=== PATIENT | female | born 1985 | race African-American/Black ===

== ENCOUNTER 2017-05-15 07:45 | Emergency (ER) | payer SELFPAY ==
--- NOTE | 2017-05-15 08:47 | ER Document Report ---
ED Skin Rash/Insect Bite/Abscs - General Chief Complaint: Abscess Stated Complaint: ABSCESS Time Seen by Provider: 05/15/17 08:26 Mode of Arrival: Ambulatory Information source: Patient Notes: 1-year-old female presents to ED for complaint of abscess in her right axilla states it has been present for a while but got larger and more painful over the last couple days. Denies any past medical history of abscesses. Has a history of a occasional not very often tachycardia, 2 ectopic pregnancies 2 C-sections. Last menstrual period 1617. She occasionally drinks and smokes 4 cigarettes a day. TRAVEL OUTSIDE OF THE [place] IN LAST 30 DAYS: No - HPI Patient complains to provider of: Tender/swollen area Onset: Other - States the numbness from time course of the last several days Onset/Duration: Gradual Quality of pain: Pressure, Sharp Severity: Moderate Pain Level: 3 Skin Character: Abscess - Right axilla Quality of rash: Painful Identify cause: No Exacerbated by: Movement Relieved by: Denies Similar symptoms previously: No Recently seen / treated by doctor: No - Related Data Allergies/Adverse Reactions: amoxicillin [Amoxicillin] Allergy (Verified 05/15/17 07:48) codeine [Codeine] Allergy (Verified 05/15/17 07:48) hydrocodone bitartrate [From Vicodin] Allergy (Verified 05/15/17 07:48) morphine [Morphine] Allergy (Verified 05/15/17 07:48) oxycodone HCl [From Percocet] Allergy (Verified 05/15/17 07:48) Past Medical History - General Information source: Patient - Social History Smoking Status: Current Every Day Smoker Cigarette use (# per day): Yes - 4 cig a day Chew tobacco use (# tins/day): No Smoking Education Provided: Yes - less than 1 min Frequency of alcohol use: Occasional Drug Abuse: None Lives with: Family Family History: None. denies: Arthritis, CAD, COPD, CVA, DM, Hyperlipidemia, Hypertension, Malignancy, Thyroid Disfunction Patient has suicidal ideation: No Patient has homicidal ideation: No - Past Medical History Cardiac Medical History: Reports: Other - tachycardia Pulmonary Medical History: Reports: None EENT Medical History: Reports: None Neurological Medical History: Reports: Hx Migraine Endocrine Medical History: Reports: None Renal/ Medical History: Reports: Hx Ectopic Malignancy Medical History: Reports: None GI Medical History: Reports: None Musculoskeltal Medical History: Reports None Skin Medical History: Reports None Psychiatric Medical History: Reports: None Traumatic Medical History: Reports: None Infectious Medical History: Reports: None Past Surgical History: Reports: Hx Section - x2, Hx Gynecologic Surgery - removed L tube/ovary ectopic x2 - Immunizations Hx Diphtheria, Pertussis, Tetanus Vaccination: Yes Review of Systems - Review of Systems Constitutional: No symptoms reported EENT: No symptoms reported Cardiovascular: No symptoms reported Respiratory: No symptoms reported Gastrointestinal: No symptoms reported Genitourinary: No symptoms reported Female Genitourinary: No symptoms reported Musculoskeletal: No symptoms reported Skin: No symptoms reported, Other - Tender swelling painful area to the right axilla Hematologic/Lymphatic: No symptoms reported Neurological/Psychological: No symptoms reported -: Yes All other systems reviewed and negative Physical Exam - Vital signs Vitals: Temp Pulse Resp BP Pulse Ox 98.5 F 99 20 121/81 97 05/15/17 07:48 05/15/17 07:48 05/15/17 07:48 05/15/17 07:48 05/15/17 07:48 Interpretation: Normal - General General appearance: Appears well, Alert - HEENT Head: Normocephalic, Atraumatic Eyes: Normal Pupils: PERRL - Respiratory Respiratory status: No respiratory distress Chest status: Nontender Breath sounds: Normal Chest palpation: Normal - Cardiovascular Rhythm: Regular Heart sounds: Normal auscultation Murmur: No - Abdominal Inspection: Normal Distension: No distension Bowel sounds: Normal Tenderness: Nontender Organomegaly: No organomegaly - Back Back: Normal, Nontender - Extremities General upper extremity: Normal inspection, Nontender, Normal color, Normal ROM , Normal temperature General lower extremity: Normal inspection, Nontender, Normal color, Normal ROM , Normal temperature, Normal weight bearing. No: Vidal's sign - Neurological Neuro grossly intact: Yes Cognition: Normal Orientation: AAOx4 Hi Coma Scale Eye Opening: Spontaneous [place] Coma Scale Verbal: Oriented Hi Coma Scale Motor: Obeys Commands Hi Coma Scale Total: 15 Speech: Normal Motor strength normal: LUE, RUE, LLE, RLE Sensory: Normal - Psychological Associated symptoms: Normal affect, Normal mood - Skin Skin Temperature: Warm Skin Moisture: Dry Skin Color: Normal Skin irregularity: Abscess - right axilla Irregularity with: Swelling, Tenderness, Warmth Course - Re-evaluation Re-evalutation: 05/15/17 09:18 After I&D completed, patient was treated with Septra and Keflex and ibuprofen. - Vital Signs Vital signs: Temp Pulse Resp BP Pulse Ox 98.5 F 99 20 121/81 97 05/15/17 07:48 05/15/17 07:48 05/15/17 07:48 05/15/17 07:48 05/15/17 07:48 Procedures - Incision and Drainage Right Axilla Time completed: 09:12 Type: Simple Anesthetic type: 1% Lidocaine mL's of anesthetic: 4 Blade size: 11 I&D procedure: Sterile dressing applied, Other Incision Method: Incision made by scalpel Amount/type of drainage: moderate amount purulent drainage Discharge - Discharge Clinical Impression: Abscess of right axilla Condition: Stable Disposition: HOME, SELF-CARE Instructions: Family Physicians / Practices Additional Instructions: ABSCESS: You have an abscess (boil). This a pus-forming infection, usually due to staph. Some boils may be left to drain on their own, but most require lancing. From the time the tender lump first appears, it may be three or four days before the abscess is ready to vashti. Local heat and rest help at this stage of treatment. An antibiotic may prevent spread of the infection. Once the abscess is opened, packing may be placed into it. This is done so pus is not sealed inside by premature closure of the cavity. The packing will be removed at your follow-up visit or you may be advised to remove it yourself at home. Sometimes this packing must be replaced a few times during healing. The wound will heal with surprisingly little scar. Depending on the size and location of an abscess, healing can take one to four weeks. You may shower and wash the area around the incision site two or three times a day. Antibiotics may be prescribed, but are usually not necessary after an abscess has been drained. If you develop fever, chills, worsening pain, or increasing swelling in the area, call the doctor or return immediately. POST INCISION AND DRAINAGE: You have had an incision made to allow drainage of an abscess. The incision must remain open so that pus and debris can drain from the wound. If the abscess cavity is large, packing is placed. This keeps the tissues from collapsing and trapping pus inside, while the body shrinks the cavity. The packing may need to be replaced every day or two. The physician will instruct you on the packing. Keep a bulky dressing over the area. Replace it if it becomes saturated with blood or pus. Do not disturb the packing (if present). You may shower and cleanse the area with gentle soap and warm water two or three times a day. Local warmth may be soothing, and may promote faster healing. Return if you develop high fever or chills, or if you note spreading redness, increasing swelling, or increasing tenderness. ORAL NARCOTIC MEDICATION: You have been given a prescription for pain control. This medication is a narcotic. It's best taken with food, as nausea can result if taken on an empty stomach. Don't operate machinery or drive within six hours of taking this medication. Do not combine this medicine with alcohol, or with any medication which can cause sedation (such as cold tablets or sleeping pills) unless you get permission from the physician. Narcotics tend to cause constipation. If possible, drink plenty of fluids and eat a diet high in fiber and fruits. CEPHALEXIN: The antibiotic you've been prescribed is a member of the cephalosporin class. This type of antibiotic covers a wide variety of infections, including those of the skin, lungs, and urinary tract. It's useful for staph infections. This antibiotic is slightly similar to the penicillin family. In rare cases , a person who is allergic to penicillin will also be allergic to this medication. If you have had a severe allergic reaction to penicillin, and have not taken this antibiotic since that time, notify your doctor. Antibiotics which cover many germs ("broad spectrum" antibiotics) are more likely to cause diarrhea or "yeast" infections. Women prone to vaginal yeast problems may suffer an attack after taking this antibiotic. In infants, oral thrush (white spots "stuck" on the cheek) or yeast diaper rash may result. See your doctor if these problems occur. Call at once if you develop itching, hives , shortness of breath, or lightheadedness. TRIMETHOPRIM-SULFA: You have been given a prescription for trimethoprim-sulfa (TMS, Septra, Bactrim). This is a combination antibiotic of the sulfa class, often used for urinary tract infections, middle ear infections, bronchitis, shigella intestinal infection, and Pneumocystis pneumonia. TMS is usually well-tolerated. Occasional side effects include nausea and decreased appetite. Septra is not recommended for infants less than two months of age. Do not take this medication if you have experienced severe side effects or allergy to sulfa medicine. You should stop this medicine at once and contact your physician if you develop any rash, joint pain, shortness of breath, bruising, or jaundice ( yellow color in the skin), or if you develop any other new or unusual symptoms. Epsom Salt Soaks Soak the wound area in a container of warm epsom salt water. If you can't get the wound area into a bucket or casillas, use a folded towel soaked in the epsom salt solution and apply to the area. Use clean hot tap water (about the temperature of a very warm bath), mixing in about one (1) teaspoon for every pint of water. Two gallon --> 16 teaspoons Epsom Salts One gallon --> 8 teaspoons Epsom Salts Two quarts --> 4 teaspoons Epsom Salts One quart --> 2 teaspoons Epsom Salts Soak the wound for about 20 minutes while gently moving it around in the water. Repeat this four (4) times a day. FOLLOW-UP CARE: Most simple abscesses will not require a follow up visit. If you had packing placed in the abscess, remove it as instructed by the physician. If you have been referred to a physician for follow-up care, call the physicians office for an appointment as you were instructed or within the next two days. If you experience worsening or a significant change in your symptoms, return to the Emergency Department at any time for re-evaluation. Prescriptions: Cephalexin Monohydrate [Keflex 500 mg Capsule] 500 mg PO QID #20 capsule Sulfamethoxazole/Trimethoprim [Septra-Ds 800-160 mg Tablet] 1 tab PO BID #20 tablet Forms: Smoking Cessation Education, Return to Work
[2017-05-15] MEDS ORDERED: CEPHALEXIN 500 MG CAPSULE PO ONE (09:13)
[2017-05-15] MEDS ORDERED: SULFAMETHOXAZOLE/TRIMETHOPRIM 800-160 MG TABLET PO ONE (09:13)
[2017-05-15] MEDS ORDERED: IBUPROFEN 600 MG TABLET PO ONE (09:13)
[2017-05-15 09:36] VITALS: BP 122/78
== END 2017-05-15 09:36 | disposition home or self-care (01) ==
LOC: ER 07:45
PROC: 0H9BXZZ Drainage of Right Upper Arm Skin, External Approach (ICD-10-PCS; principal; 2017-05-15)
DX: L02.411 Cutaneous abscess of right axilla (principal); F17.210 Nicotine dependence, cigarettes, uncomplicated; Z71.6 Tobacco abuse counseling; Z88.0 Allergy status to penicillin; Z88.5 Allergy status to narcotic agent
CPT/HCPCS: 87070; 87075; 87077; 87205; 99283

== ENCOUNTER 2020-04-28 07:51 | Emergency (ER) | payer SELFPAY ==
[2020-04-28] MEDS ORDERED: NORMAL SALINE 1000 ML 1,000 ML IV ONE (08:10)
[2020-04-28 08:36] LABS: ABSOLUTE BASOPHILS # (AUTO) 0.1 10^3/uL (0.0-0.2); ABSOLUTE EOSINOPHILS # (AUTO) 0.2 10^3/uL (0.0-0.6); ABSOLUTE LYMPHOCYTES (AUTO) 2.7 10^3/uL (0.5-4.7); ABSOLUTE MONOCYTES (AUTO) 0.8 10^3/uL (0.1-1.4); ABSOLUTE NEUT (AUTO) 8.5 10^3/uL (1.7-8.2); BASOPHILS % (AUTO) 0.6 % (0-2); EOSINOPHILS % (AUTO) 1.6 % (0-6); HEMATOCRIT 40.6 % (36.0-47.0); HEMOGLOBIN 13.8 g/dL (12.0-15.5); MEAN CORPUSCULAR HEMOGLOBIN 31.4 pg (27.0-33.4); MEAN CORPUSCULAR HGB CONC 33.9 g/dL (32.0-36.0); MEAN CORPUSCULAR VOLUME 93 fl (80-97); MONOCYTES % (AUTO) 6.3 % (3-13); PLATELET COUNT 290 10^3/uL (150-450); RED BLOOD COUNT 4.39 10^6/uL (3.72-5.28); RED CELL DISTRIBUTION WIDTH 14.2 % (11.5-14.0); SEGMENTED NEUTROPHILS % (AUTO) 69.5 % (42-78); TOTAL CELLS COUNTED % (AUTO) 100 %; WHITE BLOOD COUNT 12.2 10^3/uL (4.0-10.5)
[2020-04-28] MEDS ORDERED: METOCLOPRAMIDE HCL INJ/PF 10 MG/2 ML SDV IV ONE (08:39)
[2020-04-28] MEDS ORDERED: DIPHENHYDRAMINE HCL 50 MG/ML VIAL IV ONE (08:39)
[2020-04-28] MEDS ORDERED: KETOROLAC TROMETHAMINE INJ/PF 30 MG/1 ML SDV IV ONE (08:39)
--- NOTE | 2020-04-28 08:41 | ER Document Report ---
ED Headache - General Chief Complaint: Headache >24 hrs old Stated Complaint: HEADACHE,VOMITING,DIARRHEA Time Seen by Provider: 04/28/20 08:10 Primary Care Provider: JOSE EPSTEIN MD [ACTIVE STAFF] - Follow up as needed Mode of Arrival: Ambulatory Information source: Patient Notes: 34-year-old female past medical history significant for migraines and tachycardia presents to the emergency room complaining of a migraine headache for the past 8 days. States she gets about 3 headaches a month. She normally can get relief with Tylenol and Excedrin states this headache is not improving. Describes it as a throbbing headache to the back of her head as well as her shilo ateral aspects of her head. She denies any recent head trauma or head injury. She denies any sudden thunderclap. States she does see spots before her headaches start. Complains of photophobia and sensitivity and noise. Also states that she has been having 2 loose stools a day for the past 5 days. Complains of nausea with intermittent vomiting. Denies any bad food she can think of. Denies any recent antibiotic use. Denies any recent travel. Denies any COVID-19 exposure. TRAVEL OUTSIDE OF THE [place] IN LAST 30 DAYS: No - Related Data Allergies/Adverse Reactions: amoxicillin [Amoxicillin] Allergy (Verified 05/15/17 07:48) codeine [Codeine] Allergy (Verified 05/15/17 07:48) hydrocodone bitartrate [From Vicodin] Allergy (Verified 05/15/17 07:48) morphine [Morphine] Allergy (Verified 05/15/17 07:48) oxycodone HCl [From Percocet] Allergy (Verified 05/15/17 07:48) Past Medical History - General Information source: Patient - Social History Smoking Status: Current Every Day Smoker Frequency of alcohol use: Occasional Drug Abuse: Marijuana Family History: None. denies: Arthritis, CAD, COPD, CVA, DM, Hyperlipidemia, Hypertension, Malignancy, Thyroid Disfunction Patient has homicidal ideation: No Neurological Medical History: Reports: Hx Migraine Renal/ Medical History: Reports: Hx Ectopic . Denies: Hx Peritoneal Dialysis Past Surgical History: Reports: Hx Section - x2, Hx Gynecologic Surgery - removed L tube/ovary ectopic x2 - Immunizations Hx Diphtheria, Pertussis, Tetanus Vaccination: Yes Review of Systems - Review of Systems Constitutional: No symptoms reported Cardiovascular: No symptoms reported Respiratory: No symptoms reported Gastrointestinal: Diarrhea, Nausea, Vomiting. denies: Abdominal pain Skin: No symptoms reported Neurological/Psychological: Headaches -: Yes All other systems reviewed and negative Physical Exam - Vital signs Vitals: Temp Pulse Resp BP Pulse Ox 98.7 F 104 H 16 132/85 H 98 04/28/20 08:03 04/28/20 08:03 04/28/20 08:03 04/28/20 08:03 04/28/20 08:03 - General General appearance: Appears well, Alert In distress: Mild - HEENT Head: Normocephalic, Atraumatic Eyes: Normal Extraocular movements intact: Yes Pupils: PERRL Notes: Bilateral photophobia - Respiratory Respiratory status: No respiratory distress Chest status: Nontender Breath sounds: Normal Chest palpation: Normal - Cardiovascular Rhythm: Regular Heart sounds: Normal auscultation Murmur: No - Neurological Neuro grossly intact: Yes Cognition: Normal Orientation: AAOx4 Hi Coma Scale Eye Opening: Spontaneous Hi Coma Scale Verbal: Oriented Hi Coma Scale Motor: Obeys Commands Hi Coma Scale Total: 15 Speech: Normal Motor strength normal: LUE, RUE, LLE, RLE Sensory: Normal - Skin Skin Temperature: Warm Skin Moisture: Dry Skin Color: Normal Course - Re-evaluation Re-evalutation: 04/28/20 08:52 Presentation of a headache that appears to be most consistent with tension versus migrainous type headache. Headache was not maximal in onset, patient has no focal neurologic deficits, no nuchal rigidity, vital signs within normal limits, no papilledema, and patient is overall well in appearance. Based on clinical history and examination I do not suspect an acute subarachnoid hemorrhage, dural venous sinus thrombosis, acute meningitis, or intercranial mass. Given my low clinical suspicion for any acute life-threatening etiology, I do not feel advanced neuro imaging testing is indicated at this time. Will proceed with headache cocktail and reassess. Patient with persistent diarrhea, will check labs rule out infectious process versus viral gastroenteritis 04/28/20 10:31 Patient is resting comfortably no diarrhea since arrival to the emergency room. Reviewed lab results with patient. Headache has improved. Counseled to follow- up outpatient with a primary care physician for management of her chronic migraines. On-call physician was provided. Recommended clear liquid diet for the next 24 hours. Advance to bland diet as tolerated. Patient was given strict return to the emergency room guidelines. Return for any new or worsening symptoms. All questions were answered. Patient verbalized understanding and agrees with plan of care. - Vital Signs Vital signs: Temp Pulse Resp BP Pulse Ox 98.3 F 85 16 111/68 96 04/28/20 10:58 04/28/20 10:58 04/28/20 10:58 04/28/20 10:58 04/28/20 10:58 - Laboratory Result Diagrams: 04/28/20 08:00 04/28/20 08:00 Laboratory results interpreted by me: 04/28/20 04/28/20 04/28/20 08:00 08:00 09:45 WBC 12.2 H RDW 14.2 H Absolute Neuts (auto) 8.5 H Sodium 136.5 L Urine Protein 30 H Urine Blood MODERATE H Discharge - Discharge Clinical Impression: Migraine Qualifiers: Migraine type: with aura Status migrainosus presence: without status migrai nosus Intractability: not intractable Qualified Code(s): G43.109 - Migraine with aura, not intractable, without status migrainosus Diarrhea Qualifiers: Diarrhea type: unspecified type Qualified Code(s): R19.7 - Diarrhea, unspecified Condition: Stable Disposition: HOME, SELF-CARE Instructions: Diarrhea, Nonspecific ([facility]), Headache ([facility]) Additional Instructions: You have been seen in the Emergency Department (ED) for a headache. Please use Tylenol (acetaminophen) or Motrin (ibuprofen) as needed for symptoms, but only as written on the box. As we have discussed, please follow up with your primary care doctor as soon as possible regarding today's ED visit and your headache symptoms. Call your doctor or return to the ED if you have a worsening headache, sudden and severe headache, confusion, slurred speech, facial droop, weakness or numbness in any arm or leg, extreme fatigue, or other symptoms that concern you Clear liquid diet for 24 hours over the counter Immodium as directed Return for any new or worsening symptoms. Forms: Return to Work Referrals: JOSE EPSTEIN MD [ACTIVE STAFF] - Follow up as needed
[2020-04-28 08:52] LABS: ALBUMIN 4.1 g/dL (3.5-5.0); ALKALINE PHOSPHATASE 98 U/L (38-126); ANION GAP 6 (5-19); ASPARTATE AMINO TRANSFERASE 18 U/L (14-36); BILIRUBIN,TOTAL 0.5 mg/dL (0.2-1.3); BLOOD UREA NITROGEN 11 mg/dL (7-20); CALCIUM 9.2 mg/dL (8.4-10.2); CARBON DIOXIDE 25 mmol/L (22-30); CHLORIDE 106 mmol/L (98-107); GLUCOSE 107 mg/dL (75-110); POTASSIUM 4.4 mmol/L (3.6-5.0); TOTAL PROTEIN 7.7 g/dL (6.3-8.2)
[2020-04-28 10:26] LABS: APPEARANCE,URINE SLIGHTLY-CLOUDY; BILIRUBIN,URINE NEGATIVE (NEGATIVE); COLOR,URINE YELLOW; GLUCOSE, URINE NEGATIVE (NEGATIVE); KETONES,URINE NEGATIVE (NEGATIVE); LEUKOCYTE ESTERASE,URINE NEGATIVE (NEGATIVE); NITRITE,URINE NEGATIVE (NEGATIVE); PROTEIN,URINE 30 mg/dL (NEGATIVE); URINE SPECIFIC GRAVITY 1.019; UROBILINOGEN,URINE NEGATIVE mg/dL (<2.0)
[2020-04-28 11:00] VITALS: BP 111/68
== END 2020-04-28 10:59 | disposition home or self-care (01) ==
LOC: ER 07:51
DX: G43.109 Migraine with aura, not intractable, without status migrainosus (principal); R19.7 Diarrhea, unspecified; R11.10 Vomiting, unspecified; F17.200 Nicotine dependence, unspecified, uncomplicated; Z88.0 Allergy status to penicillin; Z88.6 Allergy status to analgesic agent
CPT/HCPCS: 99284; 96361; 96374; 96375; 36415; 84703; 85025; 80053; 81001; J1200; J1885; J2765; J7030

== ENCOUNTER 2020-08-25 17:20 | Emergency (ER) | payer SELFPAY ==
[2020-08-25] MEDS ORDERED: KETOROLAC TROMETHAMINE INJ/PF 30 MG/1 ML SDV IM ONE (18:25)
--- NOTE | 2020-08-25 18:29 | ER Document Report ---
ED Medical Screen (RME) - General Chief Complaint: Flank Pain Stated Complaint: BACK PAIN Time Seen by Provider: 08/25/20 18:15 Mode of Arrival: Ambulatory Information source: Patient Notes: 35-year-old female presented to ED for complaint of headache and right flank pain. She states she does have nausea and vomiting when the headache is bad otherwise she has not had any nausea and vomiting. She does have tenderness to palpation to the right flank right upper upper abdomen going down to the right pelvic area. Patient denies any urinary symptoms. She states she has had a bilateral tubal ligation and her last menstrual cycle was August 02. She does have a history of ectopic pregnancies x2 with surgery x2. She states she does smoke 4 cigarettes a day drinks about 3 times a month and occasionally uses marijuana. I have greeted and performed a rapid initial assessment of this patient. A comprehensive ED assessment and evaluation of the patient, analysis of test results and completion of medical decision making process will be conducted by an additional ED providers. TRAVEL OUTSIDE OF THE [place] IN LAST 30 DAYS: No - Related Data Allergies/Adverse Reactions: amoxicillin [Amoxicillin] Allergy (Verified 05/15/17 07:48) codeine [Codeine] Allergy (Verified 05/15/17 07:48) hydrocodone bitartrate [From Vicodin] Allergy (Verified 05/15/17 07:48) morphine [Morphine] Allergy (Verified 05/15/17 07:48) oxycodone HCl [From Percocet] Allergy (Verified 05/15/17 07:48) Past Medical History Neurological Medical History: Reports: Hx Migraine Renal/ Medical History: Reports: Hx Ectopic . Denies: Hx Peritoneal Dialysis Past Surgical History: Reports: Hx Section - x2, Hx Gynecologic Surgery - removed L tube/ovary ectopic x2 - Immunizations Hx Diphtheria, Pertussis, Tetanus Vaccination: Yes Physical Exam - Vital signs Vitals: Temp Pulse Resp BP Pulse Ox 99.2 F 84 18 129/85 H 98 08/25/20 17:37 08/25/20 17:37 08/25/20 17:37 08/25/20 17:37 08/25/20 17:37 Course - Vital Signs Vital signs: Temp Pulse Resp BP Pulse Ox 99.2 F 84 18 129/85 H 98 08/25/20 17:37 08/25/20 17:37 08/25/20 17:37 08/25/20 17:37 08/25/20 17:37
[2020-08-25 19:10] LABS: ABSOLUTE BASOPHILS # (AUTO) 0.1 10^3/uL (0.0-0.2); ABSOLUTE EOSINOPHILS # (AUTO) 0.2 10^3/uL (0.0-0.6); ABSOLUTE MONOCYTES (AUTO) 0.7 10^3/uL (0.1-1.4); EOSINOPHILS % (AUTO) 1.6 % (0-6); TOTAL CELLS COUNTED % (AUTO) 100 %
[2020-08-25 19:13] LABS: APPEARANCE,URINE SLIGHTLY-CLOUDY; BILIRUBIN,URINE NEGATIVE (NEGATIVE); COLOR,URINE YELLOW; GLUCOSE, URINE NEGATIVE (NEGATIVE); KETONES,URINE TRACE mg/dL (NEGATIVE); LEUKOCYTE ESTERASE,URINE NEGATIVE (NEGATIVE); NITRITE,URINE NEGATIVE (NEGATIVE); PROTEIN,URINE 100 mg/dL (NEGATIVE); UROBILINOGEN,URINE NEGATIVE mg/dL (<2.0)
[2020-08-25 19:18] LABS: ABSOLUTE LYMPHOCYTES (AUTO) 3.3 10^3/uL (0.5-4.7); ABSOLUTE NEUT (AUTO) 8.1 10^3/uL (1.7-8.2); BASOPHILS % (AUTO) 0.6 % (0-2); HEMATOCRIT 41.4 % (36.0-47.0); LYMPHOCYTES % (AUTO) 26.8 % (13-45); MEAN CORPUSCULAR HEMOGLOBIN 31.5 pg (27.0-33.4); MEAN CORPUSCULAR HGB CONC 33.9 g/dL (32.0-36.0); MEAN CORPUSCULAR VOLUME 93 fl (80-97); PLATELET COUNT 296 10^3/uL (150-450); RED BLOOD COUNT 4.44 10^6/uL (3.72-5.28); WHITE BLOOD COUNT 12.4 10^3/uL (4.0-10.5)
[2020-08-25 19:26] LABS: URINE AMPHETAMINES SCREEN NEGATIVE; URINE BARBITURATES SCREEN NEGATIVE; URINE BENZODIAZEPINES SCREEN NEGATIVE; URINE COCAINE SCREEN NEGATIVE; URINE MARIJUANA (THC) SCREEN UNCONFIRMED POSITIVE; URINE METHADONE SCREEN NEGATIVE; URINE PHENCYCLIDINE SCREEN NEGATIVE
[2020-08-25 19:34] LABS: ALBUMIN 4.1 g/dL (3.5-5.0); ALKALINE PHOSPHATASE 93 U/L (38-126); ANION GAP 10 (5-19); ASPARTATE AMINO TRANSFERASE 19 U/L (14-36); BILIRUBIN,DIRECT 0.2 mg/dL (0.0-0.4); BILIRUBIN,TOTAL 0.9 mg/dL (0.2-1.3); BLOOD UREA NITROGEN 12 mg/dL (7-20); CALCIUM 9.2 mg/dL (8.4-10.2); CARBON DIOXIDE 22 mmol/L (22-30); CHLORIDE 106 mmol/L (98-107); GLUCOSE 91 mg/dL (75-110); POTASSIUM 4.2 mmol/L (3.6-5.0); TOTAL PROTEIN 7.3 g/dL (6.3-8.2)
--- NOTE | 2020-08-25 21:40 | RADIOLOGY REPORT (SQ) ---
EXAM DESCRIPTION: Noncontrast CT scan of the abdomen and pelvis. CLINICAL HISTORY: 35 years Female; Right flank pain TECHNIQUE: CT of the abdomen and pelvis without intravenous contrast.. Oral contrastWas not used. All CT scans at this facility use dose modulation, iterative reconstruction, and/or weight based dosing when appropriate to reduce radiation dose to as low as reasonably achievable. This exam was performed according to our department optimization program which includes automated exposure control, adjustment of the mA and/or kv according to patient size and/or use of iterative reconstruction technique. COMPARISON: None. FINDINGS: Lower chest:The lung bases are clear. The visualized portion of heart and great vessels are normal. Abdomen: Liver and biliary tree: The liver is prominent measuring 19 cm in length. The gallbladder small and contracted. Pancreas: Pancreas is not well seen. Spleen:Within normal limits Kidneys: Kidneys are normal in size, shape and position. No stones. No mass or hydronephrosis. Adrenal glands:Within normal limits Vascular structures:Within normal limits Retroperitoneum: No mass or lymphadenopathy Abdominal wall: There is diastases of the rectus muscle and low in the abdomen in the midline is a small hernia defect containing fat. GI:Bowel is of normal caliber. No focal bowel wall thickening. No obstruction. Appendix: The appendix is not clearly seen. No inflammation is seen in the right lower quadrant. General: No free air. No free fluid Pelvis: Lymph nodes: No mass or lymphadenopathy Bladder: The bladder is empty Pelvis: Uterus is prominent and displaced into the right side of the pelvis. No adnexal mass. Bones: No acute bone findings. IMPRESSION: Borderline hepatomegaly. No acute process in the abdomen or pelvis. No definitive renal or ureteral stones.
[2020-08-26] MEDS ORDERED: ACETAMINOPHEN 325 MG TABLET PO ONE (02:15)
[2020-08-26] MEDS ORDERED: DIPHENHYDRAMINE HCL 50 MG/ML VIAL IV ONE (02:15)
[2020-08-26] MEDS ORDERED: METOCLOPRAMIDE HCL INJ/PF 10 MG/2 ML SDV IV ONE (02:15)
[2020-08-26] MEDS ORDERED: NORMAL SALINE 1000 ML 1,000 ML IV ONE (02:16)
--- NOTE | 2020-08-26 02:17 | ER Document Report ---
ED General - General Chief Complaint: Back Pain Stated Complaint: BACK PAIN Time Seen by Provider: 08/25/20 18:15 Mode of Arrival: Ambulatory TRAVEL OUTSIDE OF THE [place] IN LAST 30 DAYS: No - HPI Notes: Grover is a 35-year-old female with a past medical history of migraines who pres ents with headache and right low back pain. Patient states her headache began about 2 days ago. It feels like her normal migraine. She states it is worse with light. It feels achy. Patient has not taken anything for the pain. She denies any neck pain. Patient also states about 1 to 2 days ago she began having right-sided low back pain. It occasionally radiates down her leg. Patient denies any abdominal pain. No fevers or chills. No urinary symptoms. No Trauma. - Related Data Allergies/Adverse Reactions: amoxicillin [Amoxicillin] Allergy (Verified 05/15/17 07:48) codeine [Codeine] Allergy (Verified 05/15/17 07:48) hydrocodone bitartrate [From Vicodin] Allergy (Verified 05/15/17 07:48) morphine [Morphine] Allergy (Verified 05/15/17 07:48) oxycodone HCl [From Percocet] Allergy (Verified 05/15/17 07:48) Past Medical History - General Information source: Patient - Social History Smoking Status: Current Every Day Smoker Drug Abuse: Marijuana Family History: None. denies: Arthritis, CAD, COPD, CVA, DM, Hyperlipidemia, Hypertension, Malignancy, Thyroid Disfunction Neurological Medical History: Reports: Hx Migraine Renal/ Medical History: Reports: Hx Ectopic . Denies: Hx Peritoneal Dialysis Past Surgical History: Reports: Hx Section - x2, Hx Gynecologic Surgery - removed L tube/ovary ectopic x2 - Immunizations Hx Diphtheria, Pertussis, Tetanus Vaccination: Yes Review of Systems - Review of Systems Notes: CONSTITUTIONAL: No fever, fatigue or weight loss. SKIN: No rash. HENT: No congestion, ear pain, or sore throat. Positive for headache. EYES: No recent vision problems or eye pain. ENDOCRINE: No polyuria or polydipsia. CARDIOVASCULAR: No chest pain or edema. RESPIRATORY: No cough, shortness of breath, congestion, or wheezing. GASTROINTESTINAL: No abdominal pain, nausea, vomiting, bloody stools or diarrhea. GENITOURINARY: No dysuria. MUSCULOSKELETAL: No joint pain or swelling. Of her back pain. LYMPHATIC: No swollen glands. NEUROLOGIC: No seizures. No headache, focal weakness or sensory changes. HEMATOLOGIC: No unusual bruising or bleeding. PSYCHIATRIC: No depression or anxiety. Physical Exam - Vital signs Vitals: Temp Pulse Resp BP Pulse Ox 99.2 F 84 18 129/85 H 98 08/25/20 17:37 08/25/20 17:37 08/25/20 17:37 08/25/20 17:37 08/25/20 17:37 - General General appearance: Appears well Notes: VITAL SIGNS: Within normal limits. GENERAL: No acute distress, non-toxic appearance. HEAD: Normal with no signs of head trauma. EYES: EOMI, conjunctiva normal, no discharge. EARS: Hearing grossly intact. NOSE: Normal. NECK: Normal range of motion, no tenderness, supple, no lymphadenopathy, No adenopathy, no JVD. CHEST: Clear breath sounds bilaterally. No wheezes, rales, or rhonchi. CARDIAC: Regular rate and rhythm. S1 and S2, without murmurs, gallops, or rubs. VASCULAR: No Edema. Peripheral pulses normal and equal in all extremities. ABDOMEN: Normal and soft with no tenderness, no masses or pulsatile masses. GENITOURINARY: Normal, No tenderness LYMPATHTIC: No lymphadenopathy noted. MUSCULOSKELETAL: Good range of motion of all major joints. Extremities without clubbing, cyanosis or edema. Discomfort to palpation of right lumbar paraspinal musculature. No radiation down leg. No rash. NEUROLOGICAL: Alert and oriented x 3. No focal sensory or strength deficits. Speech normal. Follows commands appropriately. PSYCHIATRIC: Normal Affect, judgement and mood. SKIN: Normal appearance with no rashes or lesions. Course - Re-evaluation Re-evalutation: 08/26/20 03:06 Patient states this feels just like her normal migraine. I do not believe she warrants a CT scan. She was given Toradol and states that helped but the pain is returning. I will give her a migraine cocktail with acetaminophen. Her low back pain is very reproducible. Possible etiology could be muscular. Patient's symptoms have completely resolved after treatment. Did inform her that she had some blood on the urinalysis. Possibly, she could have passed a stone. I did inform patient of a prominent uterus on her CT scan and informed her to follow- up with her OB. She was also informed to follow-up with her PCP. She was told that she can take Tylenol and NSAIDs for the pain. She was given strict return precautions including worsening pain, numbness, other concerning findings.. 08/26/20 03:54 - Vital Signs Vital signs: Temp Pulse Resp BP Pulse Ox 99.2 F 84 18 129/85 H 98 08/25/20 17:37 08/25/20 17:37 08/25/20 17:37 08/25/20 17:37 08/25/20 17:37 - Laboratory Result Diagrams: 08/25/20 18:52 08/25/20 18:52 Laboratory results interpreted by me: 08/25/20 08/25/20 18:52 18:52 WBC 12.4 H Urine Protein 100 H Urine Ketones TRACE H Urine Blood MODERATE H Discharge - Discharge Clinical Impression: Headache Qualifiers: Headache type: unspecified Headache chronicity pattern: acute headache Intractability: not intractable Qualified Code(s): R51.9 - Headache, unspecified Low back pain Qualifiers: Chronicity: acute Back pain laterality: right Sciatica presence: without sciatica Qualified Code(s): M54.5 - Low back pain Condition: Stable Disposition: HOME, SELF-CARE Instructions: Low Back Pain ([facility]), Headache ([facility]) Additional Instructions: Follow-up with the family doctor. You may take Tylenol or ibuprofen for pain. Please return for any worsening symptoms such as back pain, fevers. Forms: Return to Work Referrals: GURINDER CHAUDHARI MD [ACTIVE STAFF] - Follow up in 3-5 days
[2020-08-26 03:55] VITALS: BP 106/62
== END 2020-08-26 04:08 | disposition home or self-care (01) ==
LOC: ER 17:20
DX: R51.9 Headache, unspecified (principal); M54.5 Low back pain; R31.9 Hematuria, unspecified; F17.200 Nicotine dependence, unspecified, uncomplicated; Z80.0 Family history of malignant neoplasm of digestive organs; Z88.6 Allergy status to analgesic agent
CPT/HCPCS: 99285; 96372; 96361; 96374; 36415; 87086; 83690; 84703; 85025; 80053; 81001; 80307; 74176; J1200; J1885; J2765; J7030

== ENCOUNTER 2020-09-02 12:13 | Emergency (ER) | payer SELFPAY ==
--- NOTE | 2020-09-02 14:11 | ER Document Report ---
ED Medical Screen (RME) - General Chief Complaint: Diarrhea Stated Complaint: ABDOMINAL PAIN,DIARRHEA Time Seen by Provider: 09/02/20 14:05 Mode of Arrival: Ambulatory Information source: Patient Notes: HPI; 35-year-old female presents to the emergency room complaining of right- sided back pain that radiates down her right leg for the past week. States she was seen here few days ago but the pain is persistent. States she has been taking ibuprofen without relief. States 2 days ago she started with generalized abdominal pain and diarrhea. She denies any recent travel. She denies any [place] VID-19 exposure. She denies any previous COVID-19 testing. PE: Alert and oriented x3. Mild distress noted. Lungs: Clear to auscultation without rales, rhonchi, wheezes. Heart: Regular rate rhythm without murmurs, rubs, gallops. I have greeted and performed a rapid initial assessment of this patient. A comprehensive ED assessment and evaluation of the patient, analysis of test results and completion of the medical decision making process will be conducted by additional ED providers. I have specifically instructed the patient or family members with the patient to immediately return to any nursing staff should anything change in the patient's condition or with their chief complaint. TRAVEL OUTSIDE OF THE [place] IN LAST 30 DAYS: No - Related Data Allergies/Adverse Reactions: amoxicillin [Amoxicillin] Allergy (Verified 05/15/17 07:48) codeine [Codeine] Allergy (Verified 05/15/17 07:48) hydrocodone bitartrate [From Vicodin] Allergy (Verified 05/15/17 07:48) morphine [Morphine] Allergy (Verified 05/15/17 07:48) oxycodone HCl [From Percocet] Allergy (Verified 05/15/17 07:48) Past Medical History Neurological Medical History: Reports: Hx Migraine Renal/ Medical History: Reports: Hx Ectopic . Denies: Hx Peritoneal Dialysis Past Surgical History: Reports: Hx Section - x2, Hx Gynecologic Surgery - removed L tube/ovary ectopic x2 - Immunizations Hx Diphtheria, Pertussis, Tetanus Vaccination: Yes Physical Exam - Vital signs Vitals: Temp Pulse Resp BP Pulse Ox 98.1 F 88 18 126/79 H 98 09/02/20 13:16 09/02/20 13:16 09/02/20 13:16 09/02/20 13:16 09/02/20 13:16 Course - Vital Signs Vital signs: Temp Pulse Resp BP Pulse Ox 98.1 F 88 18 126/79 H 98 09/02/20 13:16 09/02/20 13:16 09/02/20 13:16 09/02/20 13:16 09/02/20 13:16
[2020-09-02 15:15] LABS: APPEARANCE,URINE SLIGHTLY-CLOUDY; BILIRUBIN,URINE NEGATIVE (NEGATIVE); COLOR,URINE YELLOW; GLUCOSE, URINE NEGATIVE (NEGATIVE); KETONES,URINE NEGATIVE (NEGATIVE); LEUKOCYTE ESTERASE,URINE NEGATIVE (NEGATIVE); NITRITE,URINE NEGATIVE (NEGATIVE); PROTEIN,URINE NEGATIVE (NEGATIVE); URINE SPECIFIC GRAVITY 1.018; UROBILINOGEN,URINE NEGATIVE mg/dL (<2.0)
[2020-09-02 15:16] LABS: ABSOLUTE BASOPHILS # (AUTO) 0.1 10^3/uL (0.0-0.2); ABSOLUTE EOSINOPHILS # (AUTO) 0.1 10^3/uL (0.0-0.6); ABSOLUTE LYMPHOCYTES (AUTO) 2.9 10^3/uL (0.5-4.7); ABSOLUTE MONOCYTES (AUTO) 0.7 10^3/uL (0.1-1.4); ABSOLUTE NEUT (AUTO) 8.8 10^3/uL (1.7-8.2); BASOPHILS % (AUTO) 0.6 % (0-2); EOSINOPHILS % (AUTO) 1.1 % (0-6); HEMATOCRIT 39.1 % (36.0-47.0); HEMOGLOBIN 13.2 g/dL (12.0-15.5); LYMPHOCYTES % (AUTO) 23.1 % (13-45); MEAN CORPUSCULAR HEMOGLOBIN 31.2 pg (27.0-33.4); MEAN CORPUSCULAR HGB CONC 33.8 g/dL (32.0-36.0); MEAN CORPUSCULAR VOLUME 92 fl (80-97); MONOCYTES % (AUTO) 5.3 % (3-13); PLATELET COUNT 318 10^3/uL (150-450); RED BLOOD COUNT 4.25 10^6/uL (3.72-5.28); RED CELL DISTRIBUTION WIDTH 13.8 % (11.5-14.0); SEGMENTED NEUTROPHILS % (AUTO) 69.9 % (42-78); TOTAL CELLS COUNTED % (AUTO) 100 %; WHITE BLOOD COUNT 12.6 10^3/uL (4.0-10.5)
[2020-09-02 15:39] LABS: ALBUMIN 4.2 g/dL (3.5-5.0); ALKALINE PHOSPHATASE 101 U/L (38-126); ANION GAP 10 (5-19); ASPARTATE AMINO TRANSFERASE 18 U/L (14-36); BILIRUBIN,DIRECT 0.2 mg/dL (0.0-0.4); BILIRUBIN,TOTAL 0.6 mg/dL (0.2-1.3); BLOOD UREA NITROGEN 8 mg/dL (7-20); CALCIUM 9.4 mg/dL (8.4-10.2); CARBON DIOXIDE 23 mmol/L (22-30); CHLORIDE 105 mmol/L (98-107); GLUCOSE 89 mg/dL (75-110); POTASSIUM 4.2 mmol/L (3.6-5.0); TOTAL PROTEIN 7.7 g/dL (6.3-8.2)
[2020-09-02] MEDS ORDERED: HYDROMORPHONE HCL INJ/PF 2 MG/ML AMPULE IV ONE (15:53)
[2020-09-02] MEDS ORDERED: ONDANSETRON HCL INJ/PF 4 MG/2 ML SDV IV ONE (15:53)
[2020-09-02] MEDS ORDERED: RINGERS SOLUTION,LACTATED 1,000 ML IV ONE (15:54)
--- NOTE | 2020-09-02 15:58 | ER Document Report ---
ED General - General Chief Complaint: Back Pain Stated Complaint: ABDOMINAL PAIN,DIARRHEA Time Seen by Provider: 09/02/20 14:05 Mode of Arrival: Ambulatory Information source: Patient Notes: Patient is a 35-year-old -[place] female coming in today with right lower quadrant pain and diarrhea. Few days ago she does have an right lower back pain. She was assessed for kidney stone. She was found not to have a kidney stone. She states the pain from her right lower back is now radiated down into her right lower quadrant and groin. States she is concerned about a possible ectopic . She has had 2 ectopic pregnancies in the past. She only has her tube on the right which is tied. TRAVEL OUTSIDE OF THE [place] IN LAST 30 DAYS: No - Related Data Allergies/Adverse Reactions: amoxicillin [Amoxicillin] Allergy (Verified 05/15/17 07:48) codeine [Codeine] Allergy (Verified 05/15/17 07:48) hydrocodone bitartrate [From Vicodin] Allergy (Verified 05/15/17 07:48) morphine [Morphine] Allergy (Verified 05/15/17 07:48) oxycodone HCl [From Percocet] Allergy (Verified 05/15/17 07:48) Past Medical History - General Information source: Patient - Social History Smoking Status: Current Every Day Smoker Chew tobacco use (# tins/day): No Frequency of alcohol use: Social Drug Abuse: Marijuana Family History: None. denies: Arthritis, CAD, COPD, CVA, DM, Hyperlipidemia, Hypertension, Malignancy, Thyroid Disfunction Patient has homicidal ideation: No Neurological Medical History: Reports: Hx Migraine Renal/ Medical History: Reports: Hx Ectopic . Denies: Hx Peritoneal Dialysis Past Surgical History: Reports: Hx Section - x2, Hx Gynecologic Surgery - removed L tube/ovary ectopic x2 - Immunizations Hx Diphtheria, Pertussis, Tetanus Vaccination: Yes Review of Systems - Review of Systems Notes: Constitutional: No fevers. No chills. EENT: No eye redness. No eye pain. No ear pain. No sore throat. Cardiovascular: No chest pain. No palpitations. Respiratory: No cough. No shortness of breath. No respiratory distress. Gastrointestinal: +abdominal pain. Positive for nausea and diarrhea Genitourinary: Atraumatic. No lesions. No pain. No discharge. Musculoskeletal: Atraumatic. No swelling. No deformities. Skin: No rash or lesions. Lymphatic: No swollen lymph nodes. Neurologic: No headache. No syncope. Psychiatric: No suicidal or homicidal ideation. Physical Exam - Vital signs Vitals: Temp Pulse Resp BP Pulse Ox 98.1 F 88 18 126/79 H 98 09/02/20 13:16 09/02/20 13:16 09/02/20 13:16 09/02/20 13:16 09/02/20 13:16 - Notes Notes: General: Well-developed, well-nourished. In no acute distress. Non-toxic appearing. Cardiac: Well-perfused. Regular rate and rhythm. No murmurs, rubs, or gallops. Pulmonary: No respiratory distress. No cyanosis. Bilateral lung fiels are clear to auscultation. Abdominal: Tenderness to palpation over the right lower quadrant. No guarding or rebound. Nondistended. Bowel sounds present in all 4 quadrants HEENT: Head is atraumatic. Conjunctivae not reddened. No tearing. PERRL. EOMI. Orbits atraumatic. No periorbital swelling or erythema. Oropharynx is without erythema, swelling, or exudates. Neck: Supple. No adenopathy. No meningismus. Dermatologic: Warm with good turgor. No rash. Atraumatic. Chest: Atraumatic. No chest wall tenderness to palpation. Musculoskeletal: Moves all extremities well. No range of motion deficits. no muscular or joint tenderness. No paraspinal muscle tenderness. no midline spinal tenderness or step-off. Genitourinary: Examination deferred Neurologic: No gross neurologic deficits. Psychiatric: Normal mood. Course - Re-evaluation Re-evalutation: 09/02/20 15:57 Patient has a mild leukocytosis. She is point tender over the right lower quadrant. Will CT scan to rule out appendicitis. 09/02/20 17:40 CT scan of the right lower quadrant completely negative. Will discharge - Vital Signs Vital signs: Temp Pulse Resp BP Pulse Ox 98.1 F 88 18 126/79 H 98 09/02/20 13:16 09/02/20 13:16 09/02/20 13:16 09/02/20 13:16 09/02/20 13:16 - Laboratory Result Diagrams: 09/02/20 15:05 09/02/20 15:05 Laboratory results interpreted by me: 09/02/20 09/02/20 14:55 15:05 WBC 12.6 H Absolute Neuts (auto) 8.8 H Urine Blood MODERATE H Discharge - Discharge Clinical Impression: Right lower quadrant abdominal pain Condition: Good Disposition: HOME, SELF-CARE Instructions: Abdominal Pain ([facility]), Antispasmodics ([facility]) Prescriptions: Dicyclomine HCl [Bentyl 20 mg Tablet] 20 mg PO Q6HP PRN #12 tablet PRN Reason: Pain Scale Of 5 Forms: Return to Work
--- NOTE | 2020-09-02 17:34 | RADIOLOGY REPORT (SQ) ---
EXAM DESCRIPTION: CT ABD/PELVIS WITH IV ONLY IMAGES COMPLETED DATE/TIME: 09/02/2020 4:18 pm REASON FOR STUDY: RIGHT LOWER QUADRANT PAIN COMPARISON: 08/25/2020. TECHNIQUE: CT scan of the abdomen and pelvis performed using helical scanning technique with dynamic intravenous contrast injection. No oral contrast. Images reviewed with lung, soft tissue, and bone windows. Reconstructed coronal and sagittal MPR images reviewed. Delayed images for evaluation of the urinary system also acquired. All images stored on PACS. All CT scanners at this facility use dose modulation, iterative reconstruction, and/or weight based d osing when appropriate to reduce radiation dose to as low as reasonably achievable (ALARA). [facility]: Dose Right [facility]: CareDose [facility]: Dose Right [facility]: Teradose 4D [facility]: [employer] CONTRAST TYPE AND DOSE: contrast/concentration: Isovue 350.00 mmol/ml; Total Contrast Delivered: 89. 0 ml; Total Saline Delivered: 38.2 ml RENAL FUNCTION: GFR > 60. RADIATION DOSE: CT Rad equipment meets quality standard of care and radiation dose reduction techniq ues were employed. CTDIvol: 12.5 - 17.2 mGy. DLP: 1332 mGy-cm.. LIMITATIONS: None. FINDINGS: LOWER CHEST: No significant findings. No nodules or infiltrates. LIVER: Liver has normal size and contour. Focal fatty infiltration at the falciform ligament. No fo rachel hepatic mass. Hepatic and portal veins are patent. No biliary ductal dilation. SPLEEN: Normal size. No focal lesions. PANCREAS: No masses. No significant calcifications. No adjacent inflammation or peripancreatic fluid collections. Pancreatic duct not dilated. GALLBLADDER: No identified stones by CT criteria. No inflammatory changes to suggest cholecystitis. ADRENAL GLANDS: No significant masses or asymmetry. RIGHT KIDNEY AND URETER: No solid masses. No significant calcifications. No hydronephrosis or hyd roureter. LEFT KIDNEY AND URETER: No solid masses. No significant calcifications. No hydronephrosis or hydr oureter. AORTA AND VESSELS: No aneurysm. No dissection. Renal arteries, SMA, celiac without stenosis. RETROPERITONEUM: No retroperitoneal adenopathy, hemorrhage or masses. BOWEL AND PERITONEAL CAVITY: No masses or inflammatory changes. No free fluid or peritoneal masses. APPENDIX: Normal. PELVIS: No mass. No free fluid. Normal bladder. ABDOMINAL WALL: No masses. No hernias. BONES: No significant or acute findings. OTHER: No other significant finding. IMPRESSION: 1. Appendix is normal. 2. No acute abnormality in the abdomen or pelvis to explain the patient's symptoms. TECHNICAL DOCUMENTATION: JOB ID: [id number] Quality ID # [id number]: Final reports with documentation of one or more dose reduction techniques (e.g., Au tomated exposure control, adjustment of the mA and/or kV according to patient size, use of iterative reconstruction technique) 2010 [employer]- All Rights Reserved Reading location - IP/workstation name: [email or web address]
[2020-09-02 18:31] VITALS: BP 121/74
== END 2020-09-02 18:32 | disposition home or self-care (01) ==
LOC: ER 12:13
DX: R10.31 Right lower quadrant pain (principal); R19.7 Diarrhea, unspecified; D72.829 Elevated white blood cell count, unspecified; M54.9 Dorsalgia, unspecified; F17.200 Nicotine dependence, unspecified, uncomplicated; Z88.0 Allergy status to penicillin; Z88.6 Allergy status to analgesic agent; Z20.828 Contact with and (suspected) exposure to other viral communicable diseases
CPT/HCPCS: 99285; 96361; 96374; 96375; 36415; 84703; 85025; 87635; 80053; 81001; 74177; J1170; J2405; J7120; C9803